=== PATIENT | female | born 1955 | race Caucasian/White ===

== ENCOUNTER 2018-01-28 09:21 | Emergency (ER) | payer BC ==
[2018-01-28] MEDS ORDERED: NS 500 ML IV ONE ×2 (09:54→09:56)
--- NOTE | 2018-01-28 10:00 | EDPHY ---
H & P Time Seen by Provider: 01/28/18 09:22 HPI/ROS: HPI Fatigue, loss of appetite, shortness of breath. 62-year-old female by private vehicle. This patient has been traveling in [facility] and [facility]. She was climbing in boot on. She has been on Diamox while traveling. She reports that she noticed being unusually short of breath during this. Which has persisted and continued through her travels [place] She reports feeling fatigued as well. She reports feeling a slight twinge in her left posterior thigh and calf. Denies any asymmetric swelling of her lower extremities. She reports having some vague right-sided chest aches which she describes as on the lateral aspect of her fast at a low level. She reports feeling unusually fatigued. She has not had a fever. ROS: Constitutional: No fever, no chills. As above. Eyes: No discharge. No changes in vision. ENT: No sore throat. No nasal congestion or rhinorrhea. Respiratory: No cough. As above. Cardiac: No chest pain, as above, no palpitations. Gastrointestinal: No abdominal pain, no vomiting, no diarrhea. Loss of appetite. Genitourinary: No hematuria. No dysuria or increased frequency with urination. Musculoskeletal: No back pain. No neck pain. No myalgias or arthralgias. As above. Skin: No rashes. Neurological: No headache. No focal weakness or altered sensation. Past medical history: Hyperlipidemia, hypertension. Social history: Avid traveler. Nonsmoker. No alcohol. Here by herself. Physical Exam: General Appearance: Alert, no distress. This patient is responding to questions appropriately and in full sentences. This patient appears well- hydrated and well-nourished. Eyes: Pupils equal and round and reactive to light at 3-2 mm bilaterally, no pallor or injection. No lid edema, erythema or injection. No nystagmus. No photophobia. ENT, Mouth: Mucous membranes are moist. The pharyngeal tissues are unremarkable. No edema or swelling. No asymmetry suggestive of abscess. No erythema or exudates. Respiratory: There are no retractions, lungs are clear to auscultation with good air movement bilaterally. No tachypnea Cardiovascular: Regular rate and rhythm. No murmur. Gastrointestinal: Abdomen is soft and nontender, no masses, bowel sounds normal. No focal tenderness at McBurney's point. No Meade sign. Neurological: Motor sensory function is grossly intact. Cranial nerves are normal. Gait is normal. Skin: Warm and dry, no rashes. Musculoskeletal: Neck is supple and nontender. Extremities are symmetrical. No significant lower extremity edema. All joints range without pain or impingement. Psychiatric: No agitation. No depression. Database: EKG: EKG time is 9:41 a.m.; EKG shows a narrow complex normal sinus rhythm with a ventricular rate of 78. The HI, QRS, QT intervals are within normal limits. There are no ST-T wave changes indicative of ischemic or injury pattern. No evidence of right heart strain. Interpreted by me. Imaging: Chest x-ray AP portal; the cardiac mediastinal silhouette is unremarkable. Some perihilar thickening noted, greater on the right, consistent with airway disease with associated atelectasis. No pneumothorax. No other acute cardiopulmonary disease process noted. Interpreted by me. Procedures: Emergency department course: Triage vital signs reviewed. She is mildly hypertensive. Triage vital signs are otherwise normal. She is afebrile. IV was placed. She was started on IV normal saline with 500 cc to be given over the next hour. EKG was obtained and reviewed by myself. 10:50 a.m., the patient was re-evaluated, she is resting comfortably at this time. She denies any significant symptoms. Results of her emergency department workup discussed with her. She was concerned about possible malaria as well as blood clots given her likely travel. I explained that her D-dimer was negative. Her malaria smears are still pending. However, her CBC is normal and I explained to her that it was unlikely with a normal CBC that she had malaria. We will follow up on the results of this pending test later today. At this time she feels comfortable going home and is requesting discharge. I feel she is safe for discharge. Follow-up and return to emergency department precautions reviewed with her. All of her questions were answered. She was discharged from the emergency department in good condition. Differential Diagnosis: The differential diagnosis on this patient includes but is not limited to pulmonary embolism, DVT, congestive heart failure, acute coronary syndrome, viral syndrome, malaria. This represents a partial list of diagnoses considered. These considerations are based on history, physical exam, past history, reassessment and diagnostic testing. Smoking Status: Former smoker Constitutional: Initial Vital Signs Temperature (C) 36.8 C 01/28/18 09:31 Heart Rate 86 01/28/18 09:31 Respiratory Rate 18 01/28/18 09:31 Blood Pressure 141/88 H 01/28/18 09:31 O2 Sat (%) 95 01/28/18 09:31 O2 Delivery Mode Room Air Allergies/Adverse Reactions: No Known Allergies Allergy (Unverified 01/28/18 09:30) Home Medications: Medication Instructions Recorded Atorvastatin Calcium 01/28/18 Lisinopril 01/28/18 Sertraline HCl 01/28/18 Supplements 01/28/18 Medical Decision Making - Data Points Laboratory Results: Laboratory Results 01/28/18 09:46 01/28/18 09:46 Medications Given: Discontinued Medications Sodium Chloride (Ns) 500 mls @ 0 mls/hr IV ONCE ONE PRN Reason: Wide Open Stop: 01/28/18 09:55 Last Admin: 01/28/18 09:56 Dose: Not Given Sodium Chloride (Ns) 500 mls @ 0 mls/hr IV EDNOW ONE; Wide Open PRN Reason: Protocol Stop: 01/28/18 09:57 Last Admin: 01/28/18 09:58 Dose: 500 mls Point of Care Test Results: Chemistry 01/28/18 09:56 POC Troponin I 0.00 ng/mL ng/mL (0.00-0.08) Departure - Departure Disposition: Home, Routine, Self-Care Clinical Impression: Dyspnea, Bronchitis Condition: Good Instructions: Acute Bronchitis (ED), Dyspnea (ED) Additional Instructions: Read and follow provided instructions. Follow-up with your primary care physician early next week for re-evaluation as discussed. You should have your chest x-ray repeated at that time or within the next 7-10 days as discussed. Your malarial test results should be available later today. You can call in for result. We will follow up on this as well and notify you of a positive result. No strenuous activity until you have been cleared by her primary care physician. Keep yourself well hydrated. Return to the emergency department for worsening symptoms, worsening cough, worsening shortness of breath, chest pain, fever or other serious concerns. Referrals: SOLA DELGADO [Other] - As per Instructions
[2018-01-28 10:01] LABS: PLATELET COUNT 229 10^3/uL (150-400)
[2018-01-28 10:09] LABS: INR 0.94 (0.83-1.16); PROTIME(PATIENT) 12.8 SEC (12.0-15.0)
[2018-01-28 10:55] VITALS: BP 125/76
--- NOTE | 2018-01-28 11:03 | CPEKG ---
Test Reason : OPEN Blood Pressure : / mmHG Vent. Rate : 078 BPM Atrial Rate : 078 BPM P-R Int : 164 ms QRS Dur : 087 ms QT Int : 400 ms P-R-T Axes : 043 001 026 degrees QTc Int : 456 ms Sinus rhythm Confirmed by Argenis Whiting ([id number]) on 01/28/2018 11:02:11 AM Referred By: Confirmed By:Argenis Whiting
[2018-01-28 11:44] LABS: MALARIAL PREP NONE SEEN (NONE SEEN)
[2018-01-29] MEDS ORDERED: SURGIFLO MATRIX KIT WITH THROMBIN 8 ML TP ONE (02:23)
== END 2018-01-28 11:03 | disposition home or self-care (01) ==
DX: J40 Bronchitis, not specified as acute or chronic (principal); I10 Essential (primary) hypertension
CPT/HCPCS: 84484-PO